=== PATIENT | female | born 1980 | race American Indian/Alaskan Native ===

== ENCOUNTER 2018-10-25 17:08 | Emergency (ER) | payer OTHER ==
[2018-10-25] MEDS ORDERED: Ondansetron 4 MG/2 ML SDV IVPUSH ONE (18:03)
[2018-10-25] MEDS ORDERED: HYDROmorphone 2 MG/ML SDV IVPUSH ONE ×2 (18:03→19:08)
[2018-10-25] MEDS ORDERED: Sodium Chloride 0.9% 1,000 ML IV SCH (18:15)
--- NOTE | 2018-10-25 18:17 | EDM.PDOC ---
ED HPI GENERAL MEDICAL PROBLEM - General Stated Complaint: ABD PAIN CRAMPS Time Seen by Provider: 10/25/18 17:40 Source of Information: Reports: Patient History Limitations: Reports: No Limitations - History of Present Illness INITIAL COMMENTS - FREE TEXT/NARRATIVE: Patient presents today with concern for acute onset abdominal pain that happened as she stood up from work this afternoon. Was not lifting or exerting anything, so does not think it was an injury. She has had pain like this once before a few months ago, and was diagnosed at that time with ovarian cysts rupture. Possible history of endometriosis. This was in another state. She opted at that time due to work scheduling and personal preference to treat with traditional [place] remedies and herbs, and her symptoms had not recurred until today. she thinks she has had two menstrual cycles since then. She took tylenol and ibuprofen this afternoon with very minimal relief. She notes the pain has spread somewhat to her low back and up her right side, and it is difficult to straighten her leg. Has a slight headache now and mild nausea, no vomiting, no diarrhea. No urinary symptoms, no abnormal vaginal discharge. Notes that her menstrual cycle started this morning, fairly heavy bleeding, has changed from 1 tampon to pads, changed them twice. Cycle about 7 days later than expected, but she is often not very regular. History 4 C/s and tubal ligation, as well as appendectomy. She thinks the cyst was around 2cm but it was not able to be seen on CT, required pelvic US to view. , not sexually active. Last meal was at 2pm, [employer]. Drinks a lot of water as its been quite hot, and tends to eat salty foods. No history diabetes, did have GDM and was on insulin during her . No history pre-eclampsia or HTN, no lung problems, no heart problems, had back pain at one point which greatly improved with PT. Family history of ovarian cancer. 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 Single mother of 4 , two of her boys are with her on this trip, ages 15 and 13. abdomen pain Pain Score (Numeric/FACES): 8 - Related Data Allergies Allergy/AdvReac Type Severity Reaction Status Date / Time ibuprofen Allergy Swelling Verified 10/25/18 18:03 prochlorperazine Allergy Other Verified 10/25/18 18:04 [From Compazine] promethazine [From Phenergan] Allergy Other Verified 10/25/18 18:04 Home Meds: Home Meds oxyCODONE 10 mg PO Q6HR #12 tablet 10/25/18 [Rx] Past Medical History [employer] SECURITY History: Reports: , Other (See Below) (ovarian cysts) : 4 Para: 4 LMP (Approximate): Other (See Below) (started today) - Past Surgical History GI Surgical History: Reports: Appendectomy Female Surgical History: Reports: Section (X4) Social & Family History - Family History Endocrine/Metabolic: Reports: Diabetes, type II Oncologic: Reports: Ovarian - Tobacco Use Smoking Status *Q: Never Smoker - Alcohol Use Alcohol Use History: No - Recreational Drug Use Recreational Drug Use: No - Living Situation & Occupation Living situation: Reports: Occupation: Employed Social History Comment: Sylvia from [place], [place], [employer], 4 sons two of whom are with her on this trip. ED ROS GENERAL - Review of Systems Review Of Systems: See Below Constitutional: Denies: Fever, Chills, Diaphoresis HEENT: Denies: Ear Pain, Eye Pain, Rhinitis, Sinus Problem, Throat Pain Respiratory: Denies: Shortness of Breath, Wheezing, Pleuritic Chest Pain, Cough Cardiovascular: Denies: Chest Pain, Dyspnea on Exertion, Edema, Palpitations, Syncope Endocrine: Reports: Other (notes she drinks a lot in the heat ). Denies: Polydypsia, Polyuria GI/Abdominal: Reports: Abdominal Pain, Nausea. Denies: Constipation, Diarrhea, Vomiting : Denies: Flank Pain, Frequency, Urgency Musculoskeletal: Reports: Back Pain Skin: Denies: Wound, Change in Color Neurological: Denies: Confusion, Dizziness, Headache, Numbness, Tingling, Weakness Hematologic/Lymphatic: Denies: Easy Bleeding, Easy Bruising Immunologic: Reports: No Symptoms ED EXAM, GENERAL - Physical Exam Exam: See Below Free Text/Narrative:: General: alert, pleasant and cooperative but in significant pain. Pupils equal and reactive, facial muscles symmetric, mucus membranes moist. No cervical lymphadenopathy. Lungs clear, no wheezes or crackles. Heart regular rate/ rhythm, peripheral pulses +2 in both upper and lower extremities. No lower extremity edema. No skin lesions or rashes. Gait normal, strength equal side to side. Abdomen: + bowel sounds, tender in RLQ, no rebound or guarding. Pelvic: copious blood in vaginal vault, unable to visual cervix. Bimanual: no cervical motion tenderness, no left adnexal tenderness, acutely tender over right adnexa. Course - Vital Signs Text/Narrative:: initial impression - history ovarian cysts and very similar presentation - very likely possibility. No appendix, ovarian torsion possible, less likely a bowel problem, no symptoms and no gallbladder area pain. Has otherwise felt well so not likely infectious. Will get labs, pelvic US, may need CT. IVF started and ordered 0.2 dilaudid, probably will need second dose, and zofran for nausea. Gets swelling when taking ibuprofen; will list as allergy since she has developed throat symptoms in the past so uses sparingly. Took tylenol this afternoon. Last Recorded V/S: Last Vital Signs Temp 36.5 C 10/25/18 20:45 Pulse 63 10/25/18 20:45 Resp 18 10/25/18 20:45 BP 112/83 10/25/18 20:45 Pulse Ox 100 10/25/18 20:45 - Orders/Labs/Meds Orders: Active Orders 24 hr Category Date Time Status Abdomen Pelvis w Cont [CT] Stat Exams 10/25/18 18:52 Taken Transvaginal Non OB [US] Stat Exams 10/25/18 18:18 Taken Labs: Laboratory Tests 10/25/18 10/25/18 Range/Units 18:21 18:21 WBC 8.0 (4.5-12.0) X10-3/uL RBC 4.33 (3.23-5.20) x10(6)uL Hgb 13.4 (11.5-15.5) g/dL Hct 38.7 (30.0-51.3) % MCV 89.5 (80-96) fL MCH 30.9 (27.7-33.6) pg MCHC 34.6 (32.2-35.4) g/dL RDW 12.9 (11.5-15.5) % Plt Count 253 (125-369) X10(3)uL MPV 8.2 (7.4-10.4) fL Neut % (Auto) 71.8 (46-82) % Lymph % (Auto) 23.1 (13-37) % [place] % (Auto) 5.0 (4-12) % Eos % (Auto) 0 L (1.0-5.0) % Baso % (Auto) 0 (0-2) % Neut # (Auto) 5.7 (1.6-8.3) # Lymph # (Auto) 1.9 (0.6-5.0) # [place] # (Auto) 0.4 (0.0-1.3) # Eos # (Auto) 0.0 (0.0-0.8) # Baso # (Auto) 0.0 (0.0-0.2) # Sodium 141 (135-145) mmol/L Potassium 3.4 L (3.5-5.3) mmol/L Chloride 107 (100-110) mmol/L Carbon Dioxide 25 (21-32) mmol/L BUN 10 (7-18) mg/dL Creatinine 0.9 (0.55-1.02) mg/dL Est Cr Clr Drug Dosing TNP Estimated GFR (MDRD) > 60 (>60) BUN/Creatinine Ratio 11.1 (9-20) Glucose 115 (80-116) mg/dL Calcium 8.3 L (8.6-10.2) mg/dL Total Bilirubin 0.4 (0.1-1.3) mg/dL AST 14 (5-25) IU/L ALT 16 (12-36) U/L Alkaline Phosphatase 93 (56-112) IU/L Total Protein 6.4 (6.0-8.0) g/dL Albumin 3.6 (3.5-5.2) g/dL Globulin 2.8 g/dL Albumin/Globulin Ratio 1.3 Meds: Medications Discontinued Medications Generic Name Dose Route Start Last Admin Trade Name Freq PRN Reason Stop Dose Admin Acetaminophen 650 mg 10/25/18 19:30 10/25/18 19:35 Tylenol PO 10/25/18 19:31 650 mg NOW ONE Administration Hydromorphone HCl 0.2 mg 10/25/18 18:03 10/25/18 18:24 Dilaudid IVPUSH 10/25/18 18:04 0.2 mg ONETIME ONE Administration Hydromorphone HCl 0.2 mg 10/25/18 19:08 10/25/18 19:20 Dilaudid IVPUSH 10/25/18 19:09 0.2 mg ONETIME ONE Administration Sodium Chloride 1,000 mls @ 150 mls/hr 10/25/18 18:15 10/25/18 18:15 Normal Saline IV 150 mls/hr ASDIRECTED EMILIANO Administration Iopamidol 100 ml 10/25/18 18:54 Isovue-370 (76%) IV 10/25/18 18:55 ONETIME ONE Ondansetron HCl 4 mg 10/25/18 18:03 10/25/18 18:20 Zofran IVPUSH 10/25/18 18:04 4 mg ONETIME ONE Administration Oxycodone HCl 10 mg 10/25/18 20:15 10/25/18 20:30 Oxycodone PO 10/25/18 20:16 10 mg ONETIME ONE Administration Sodium Chloride 10 ml 10/25/18 19:24 10/25/18 19:25 Saline Flush FLUSH 10 ml ASDIRECTED PRN Administration IV Use - Re-Assessments/Exams Free Text/Narrative Re-Assessment/Exam: 10/25/18 unable to see ovarians on US and patient not tolerating exam, opted for CT instead. Re-evaluated and pelvic exam completed after second dose of 0.2mg dilaudid, patient painful on right, didn't really tolerate speculum exam. Labs within normal limits, unlikely to be infectious. Abdomen no rigidity, rebound or guarding. 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 reviewed CT report with patient, no obvious findings, though this is not uncommon with a ruptured cyst. Cannot completely rule out ovarian torsion without an ultrasound, but no obvious signs seen on CT. given 10mg PO oxycodone prior to discharge, Rx printer not working so I will call her script into pharmacy in the morning. Discussed precautions and reasons to return. 10/26/18 08:33 Free Text/Narrative Re-Assessment/Exam: reviewed CT report with patient, no obvious findings, though this is not uncommon with a ruptured cyst. Cannot completely rule out ovarian torsion without an ultrasound, but no obvious signs seen on CT. Discussed discharge and risks/benefits of not completing US. Note provided for work. Recommended if still significant pain could followup Sunday at walk-in clinic, information also given for local PCP offices as she may be in the area for a while. Also discussed s/s which would prompt need for re-evaluation in ER over weekend. abdomen still painful but no rebound or guarding. son able to drive them home. Given 10mg PO oxycodone prior to discharge, Rx printer not working so I will call her oxycodone script into pharmacy in the morning, advised need to be conservative with this, as depending on clinician she might not get any more. Discussed precautions and reasons to return. She was in agreement with this plan and had no further questions. Departure - Departure Time of Disposition: 20:17 Disposition: Home, Self-Care 01 Condition: Fair Clinical Impression: Abdominal pain, Ovarian cyst rupture - Discharge Information *PRESCRIPTION DRUG MONITORING PROGRAM REVIEWED*: Yes *COPY OF PRESCRIPTION DRUG MONITORING REPORT IN PATIENT [place]: No (multi state report run, only 2 scripts in last year, consistent with patient story) Prescriptions: oxyCODONE 10 mg PO Q6HR #12 tablet Instructions: Ovarian Cyst, [id number] Referrals: PCP,Not In Area [Primary Care Provider] - Forms: ED Department Discharge Additional Instructions: [facility] [phone] [facility] [phone] can followup at walk-in clinic on Sunday if still having lots of pain, they will be able to order another US there if needed. most likely the diagnosis is as before, a ruptured ovarian cyst. An alternative possibility is that there is a problem with blood flow to the ovary , as we discussed, if this is the case the pain will continue to significantly worsen and you will need to return to ER. There were no signs of this problem seen on CT but the best test for this is a pelvic US. Return to ER if: fever vomiting and unable to stay hydrated severely worsening pain -- it should be improving slowly over the next few days pain that is continuing to spread throughout your abdomen, + feeling lightheaded , heart racing, unable to sit up note provided for work small script of oxycodone given - due to new guidelines regarding opioids, this will likely not be refilled again so use sparingly and mainly to help sleep if you can, and to be able to take care of your boys. A dose was given tonight before you left the ER and you can pick pulling machine tender the rest at the pharmacy in the morning. If you develop swelling after taking ibuprofen, you should not take this medication, the allergy will worsen over time tylenol -very important to not exceed the daily instructions on the bottle - it will cause liver failure and need for a liver transplant! take very good care - My Orders Last 24 Hours: My Active Orders 10/25/18 18:18 Transvaginal Non OB [US] Stat 10/25/18 18:52 Abdomen Pelvis w Cont [CT] Stat - Assessment/Plan Last 24 Hours: My Active Orders 10/25/18 18:18 Transvaginal Non OB [US] Stat 10/25/18 18:52 Abdomen Pelvis w Cont [CT] Stat
[2018-10-25] MEDS ORDERED: Iopamidol 755 Mg/ML 100 ML Bottle IV ONE (18:54)
[2018-10-25] MEDS ORDERED: Sodium Chloride 0.9% 10 ML Syringe FLUSH PRN (19:24)
[2018-10-25] MEDS ORDERED: Acetaminophen 325 MG Tab PO ONE (19:30)
[2018-10-25] MEDS ORDERED: oxyCODONE 5 MG Tab PO ONE (20:15)
--- NOTE | 2018-10-28 13:47 | US ---
INDICATION: Pelvic pain, sudden onset, history of left ovarian cyst. INDICATION FOR TRANSVAGINAL: Pelvic pain, sudden onset, history of left ovarian cyst/need better visualization of the uterus than was possible with transabdominal probe. PELVIC ULTRASOUND, NON-OB, LIMITED/TRANSVAGINAL PELVIC ULTRASOUND, NON-OB: Multiple ultrasonic images were obtained initially with transabdominal probe and then with transvaginal probe to better visualize the uterus and ovaries, 12/06 - no comparisons. Nabothian cysts are noted at the cervix. The largest measured approximately 6.3 mm. Poor visualization of the uterus is noted. No gross abnormality was seen. Study is limited, however. The ovaries were not visualized. IMPRESSION: Very limited study of the pelvis by ultrasound. Apparently a CT examination of the abdomen and pelvis will be obtained. [facility]
== END 2018-10-25 20:50 | disposition home or self-care (01) ==
LOC: FB.ED 17:08
DX: N83.8 Other noninflammatory disorders of ovary, fallopian tube and broad ligament (principal); Z88.6 Allergy status to analgesic agent; Z88.8 Allergy status to other drugs, medicaments and biological substances
CPT/HCPCS: 36415; 74177; 76830; 76857; 80053; 85025; 96361; 96374; 96375; 96376; 99284; A9270; J1170; J2405; J7030

== ENCOUNTER 2018-10-27 22:48 | Emergency (ER) | payer OTHER ==
--- NOTE | 2018-10-27 23:00 | EDM.PDOC ---
ED HPI GENERAL MEDICAL PROBLEM - General Stated Complaint: ABD PAIN Time Seen by Provider: 10/27/18 22:48 Source of Information: Reports: Patient History Limitations: Reports: Physical Impairment - History of Present Illness INITIAL COMMENTS - FREE TEXT/NARRATIVE: 37 y.o. N A female came to ed because of pain at her RLQ of her abdomen. Pt was in this ED for same yesterday,when a CT abd/pelvis with contrast was taken and found to be neg. Pelvic US was performed as well but could not be completed because of her pain. Pt was sent home with oxycodone. Pt came back because of excruciating pain at her RLQ of her abd. 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 Pt has similar symptoms about 1 year ago. At that time she went to a Interior Design Professor, who gave a some "Erbs" and the pain subsided. No N/V/D No CP no SOB. Pt is from [place] and is scheduled to work in [place] for the next 10 weeks. No other acute med issues. BP 122/69 RR 20 Pulse ox 99% on RA Pulse 71 Temp 36.4 Onset Date: 10/25/18 Onset Time: 14:00 Duration: Day(s):, Intermittent Location: Reports: Pelvis Quality: Reports: Dull, Pressure, Stabbing, Throbbing Severity: Severe Improves with: Reports: Heat Therapy Worsens with: Reports: Movement Context: Reports: Activity (while lifting up a pipe at work. 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: , Other (See Below) (ovarian cysts) - Past Surgical History GI Surgical History: Reports: Appendectomy Female Surgical History: Reports: Section (X4) Social & Family History - Family History Endocrine/Metabolic: Reports: Diabetes, type II Oncologic: Reports: Ovarian - Caffeine Use Caffeine Use: Reports: Coffee - Living Situation & Occupation Living situation: Reports: Occupation: Employed ED ROS GENERAL - Review of Systems Review Of Systems: See Below Constitutional: Reports: No Symptoms HEENT: Reports: No Symptoms Respiratory: Reports: No Symptoms Cardiovascular: Reports: No Symptoms Endocrine: Reports: No Symptoms GI/Abdominal: Reports: Abdominal Pain (RLL abdomen) : Reports: No Symptoms Musculoskeletal: Reports: No Symptoms Skin: Reports: No Symptoms Neurological: Reports: No Symptoms Psychiatric: Reports: No Symptoms Hematologic/Lymphatic: Reports: No Symptoms Immunologic: Reports: No Symptoms ED EXAM, RENAL/ - Physical Exam Exam: See Below Exam Limited By: Other (abd. pin) General Appearance: Alert, Moderate Distress, Obese (morbid) Eye Exam: Bilateral Eye: Normal Inspection Ears: Normal External Exam Nose: Normal Inspection, Normal Mucosa, No Blood Throat/Mouth: Normal Inspection, Normal Lips, Normal Voice, No Airway Compromise Head: Atraumatic, Normocephalic Neck: Normal Inspection, Supple, Non-Tender, Full Range of Motion Respiratory/Chest: No Respiratory Distress, Lungs Clear, Normal Breath Sounds, No Accessory Muscle Use, Chest Non-Tender Cardiovascular: Normal Peripheral Pulses, Regular Rate, Rhythm, No Edema, No Gallop GI/Abdominal: Normal Bowel Sounds, No Mass, Tender (RLQ of abdomen) (Female) Exam: Deferred Rectal (Female) Exam: Deferred Back Exam: Normal Inspection, Full Range of Motion Extremities: Normal Inspection, Normal Range of Motion, Non-Tender, No Pedal Edema Neurological: Alert, Oriented, CN II-XII Intact, Normal Cognition, Abnormal Gait (because of abd.pain) Psychiatric: Normal Affect, Normal Mood Skin Exam: Warm, Dry, Intact, Normal Color, No Rash Lymphatic: No Adenopathy Course - Vital Signs Text/Narrative:: 37 y.o. N A female came to ed because of pain at her RLQ of her abdomen. Pt was in this ED for same yesterday,when a CT abd/pelvis with contrast was taken and found to be neg. Pelvic US was performed as well but could not be completed because of her pain. Pt was sent home with oxycodone. Pt came back because of excruciating pain at her RLQ of her abd. 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 Pt has similar symptoms about 1 year ago. At that time she went to a Interior Design Professor, who gave a some "Erbs" and the pain subsided. No N/V/D No CP no SOB. Pt is from [place] and is scheduled to work in [place] for the next 10 weeks. No other acute med issues. BP 122/69 RR 20 Pulse ox 99% on RA Pulse 71 Temp 36.4 PE: Morbid obese 37 y.o.f with RLQ abd pain Imaging: CT and/pelvis with out contrast: NAD 12.33 am Consultation CRL: QUENTIN Hamm was called who confirmed again: No hernia, no Hematome no Urolithiasis, no torsion of ovaries no acute findings etc. Labs: CBC, BMP and UA were nl except Her Lymphs were 44.1 % her potassium was 3.4 her Ca was 8.3 and her UA showed Microcytic hematuria Impression: Right groin pain since Sunday, cause not determined Tx: Dilaudid 2 mg, ICE/Warm heat Reexam: Pain did not improve, Pt was offered to be admitted for pain control, which she refused because she hill a 13 year old boy at home, who would be by himself Plan: D/C with instructions. Pt had still 6 tabs of oxycodone from Sunday, previous admission Last Recorded V/S: Last Vital Signs Temp 36.4 C 10/28/18 00:59 Pulse 60 10/28/18 00:59 Resp 18 10/28/18 00:59 BP 105/62 10/28/18 00:59 Pulse Ox 100 10/28/18 00:59 - Orders/Labs/Meds Orders: Active Orders 24 hr Category Date Time Status Notify Provider Consults [RC] ASDIRECTED Care 10/28/18 01:18 Active Consult to Physician [CONS] Urgent Cons 10/28/18 01:14 Ordered Abdomen Pelvis wo Cont [CT] Stat Exams 10/27/18 22:58 Taken Labs: Laboratory Tests 10/27/18 10/27/18 10/27/18 Range/Units 23:11 23:11 23:58 WBC 4.5 (4.5-12.0) X10-3/uL RBC 4.16 (3.23-5.20) x10(6)uL Hgb 12.7 (11.5-15.5) g/dL Hct 37.8 (30.0-51.3) % MCV 90.9 (80-96) fL MCH 30.5 (27.7-33.6) pg MCHC 33.6 (32.2-35.4) g/dL RDW 13.0 (11.5-15.5) % Plt Count 248 (125-369) X10(3)uL MPV 10.2 (7.4-10.4) fL Neut % (Auto) 47.0 (46-82) % Lymph % (Auto) 44.1 H (13-37) % [place] % (Auto) 8.9 (4-12) % Eos % (Auto) 0 L (1.0-5.0) % Baso % (Auto) 0 (0-2) % Neut # (Auto) 2.1 (1.6-8.3) # Lymph # (Auto) 2.0 (0.6-5.0) # [place] # (Auto) 0.4 (0.0-1.3) # Eos # (Auto) 0.0 (0.0-0.8) # Baso # (Auto) 0.0 (0.0-0.2) # Sodium 139 (135-145) mmol/L Potassium 3.4 L (3.5-5.3) mmol/L Chloride 104 (100-110) mmol/L Carbon Dioxide 27 (21-32) mmol/L BUN 14 (7-18) mg/dL Creatinine 0.9 (0.55-1.02) mg/dL Est Cr Clr Drug Dosing 77.76 mL/min Estimated GFR (MDRD) > 60 (>60) BUN/Creatinine Ratio 15.6 (9-20) Glucose 98 (80-116) mg/dL Calcium 8.4 L (8.6-10.2) mg/dL Urine Color Yellow (YELLOW) Urine Appearance Clear (CLEAR) Urine pH 6.5 (5.0-6.5) Ur Specific [place] 1.015 (1.010-1.025) Urine Protein Negative (NEGATIVE) mg/dL Urine Glucose (UA) Normal (NORMAL) mg/dL Urine Ketones Negative (NEGATIVE) mg/dL Urine Occult Blood Moderate H (NEGATIVE) Urine Nitrite Negative (NEGATIVE) Urine Bilirubin Negative (NEGATIVE) Urine Urobilinogen Normal (NEGATIVE) mg/dL Ur Leukocyte Esterase Negative (NEGATIVE) Urine RBC 5-10 H (0-5) Urine WBC 0-5 (0-5) Ur Squamous Epith Cells Few H (NS,R,O) Urine Bacteria Few H (NS) Meds: Medications Discontinued Medications Generic Name Dose Route Start Last Admin Trade Name Sumit PRN Reason Stop Dose Admin Hydromorphone HCl 1 mg 10/27/18 23:17 10/27/18 23:29 Dilaudid IM 10/27/18 23:18 1 mg ONETIME STA Administration Hydromorphone HCl 1 mg 10/28/18 00:29 10/28/18 00:33 Dilaudid IM 10/28/18 00:30 1 mg ONETIME ONE Administration Departure - Departure Time of Disposition: 00:59 Disposition: Home, Self-Care 01 Condition: Fair Clinical Impression: Lt groin pain - Discharge Information Instructions: Abdominal Pain, Adult Referrals: PCP,None [Primary Care Provider] - Forms: ED Department Discharge Additional Instructions: Please apply ice to the affected area, please cont your pin meds given on Sunday , [facility].Please come back if your symptoms get worse acutely - My Orders Last 24 Hours: My Active Orders 10/27/18 22:58 Abdomen Pelvis wo Cont [CT] Stat 10/28/18 01:14 Consult to Physician [CONS] Urgent 10/28/18 01:18 Notify Provider Consults [RC] ASDIRECTED - Assessment/Plan Last 24 Hours: My Active Orders 10/27/18 22:58 Abdomen Pelvis wo Cont [CT] Stat 10/28/18 01:14 Consult to Physician [CONS] Urgent 10/28/18 01:18 Notify Provider Consults [RC] ASDIRECTED
[2018-10-27] MEDS ORDERED: HYDROmorphone 2 MG/ML SDV IM STA (23:17)
[2018-10-28] MEDS ORDERED: HYDROmorphone 2 MG/ML SDV IM ONE (00:29)
== END 2018-10-28 01:13 | disposition home or self-care (01) ==
LOC: FB.ED 22:48
DX: R10.31 Right lower quadrant pain (principal); E66.01 Morbid (severe) obesity due to excess calories; Z88.8 Allergy status to other drugs, medicaments and biological substances; Z90.49 Acquired absence of other specified parts of digestive tract
CPT/HCPCS: 36415; 74176; 80048; 81001; 85025; 96372; 99284; J1170

== ENCOUNTER 2018-11-02 21:43 | Emergency (ER) | payer OTHER ==
--- NOTE | 2018-11-02 22:44 | EDM.PDOC ---
ED HPI GENERAL MEDICAL PROBLEM - General Chief Complaint: Abdominal Pain Stated Complaint: ABDOMIN PAIN Time Seen by Provider: 11/02/18 22:40 Source of Information: Reports: Patient History Limitations: Reports: No Limitations - History of Present Illness INITIAL COMMENTS - FREE TEXT/NARRATIVE: Presents with persistent RLQ abdominal pain since 10/25/18, radiates to right upper leg and right mid back. Pain initially occurred at work after bending over and then standing back up. Pain is constant and not controlled with Tramadol, and worsens with urination. Right leg became swollen 2 days ago, but resolved with elevation. This is the 3rd ER visit for this complaint. A pelvic exam was performed on the initial visit 10/25/18 but did not illicit concern for PID. Pain was thought to be most likely secondary to a ruptured ovarian cyst. A CT Abd/Pelvis w/o contrast on 10/27/18 was unremarkable. Onset Date: 10/25/18 Location: Reports: Abdomen Quality: Reports: Ache Severity: Moderate RLQ & groin Pain Score (Numeric/FACES): 6 - Related Data Allergies Allergy/AdvReac Type Severity Reaction Status Date / Time ibuprofen Allergy Swelling Verified 11/02/18 22:12 prochlorperazine Allergy Other Verified 11/02/18 22:12 [From Compazine] promethazine [From Phenergan] Allergy Other Verified 11/02/18 22:12 Home Meds: Home Meds Acetaminophen/oxyCODONE [Percocet 325-5 MG] 1 - 2 each PO Q6H PRN #12 tab [Rx] Past Medical History Gastrointestinal History: Reports: None Genitourinary History: Reports: None 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: , 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: Neurological History: Reports: Seizure Other Neuro History: 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 Endocrine/Metabolic History: Reports: Obesity/BMI 30+ - Infectious Disease History Infectious Disease History: Reports: Chicken Pox - Past Surgical History GI Surgical History: Reports: Appendectomy Female Surgical History: Reports: Section Other Female Surgeries/Procedures: CS x 4 Neurological Surgical History: Reports: Other (See Below) Other Neurological Surgeries/Procedures: pituitary tumor removed ( transsphenoidal) Social & Family History - Family History Family Medical History: Noncontributory Endocrine/Metabolic: Reports: Diabetes, type II Oncologic: Reports: Ovarian - Tobacco Use Smoking Status *Q: Former Smoker Years of Tobacco use: 2 Used Tobacco, but Quit: Yes Month/Year Tobacco Last Used: 2018 - Caffeine Use Caffeine Use: Reports: Coffee, Energy Drinks, Soda, Tea - Recreational Drug Use Recreational Drug Use: No - Living Situation & Occupation Living situation: Reports: Occupation: Employed ED ROS GENERAL - Review of Systems Review Of Systems: ROS reveals no pertinent complaints other than HPI. ED EXAM, GI/ABD - Physical Exam Exam: See Below Exam Limited By: No Limitations General Appearance: Alert, WD/WN, No Apparent Distress Ears: Normal External Exam Nose: Normal Inspection Throat/Mouth: Normal Inspection Head: Atraumatic, Normocephalic Neck: Full Range of Motion Respiratory/Chest: No Respiratory Distress, Lungs Clear, Normal Breath Sounds Cardiovascular: Regular Rate, Rhythm, No Murmur GI/Abdominal Exam: Normal Bowel Sounds, Soft, Tender (moderate RLQ) (Female) Exam: Deferred Back Exam: CVA Tenderness (R) (mild) Extremities: Normal Range of Motion, No Pedal Edema, Other (mild tenderness right posterior thigh, 2+ right dorsalis pedis pulse). No: Slow Capillary Refill, Redness Neurological: Alert, Normal Cognition, No Motor/Sensory Deficits Psychiatric: Normal Affect, Normal Mood Skin Exam: Warm, Dry, Intact, Normal Color, No Rash Course - Vital Signs Last Recorded V/S: Last Vital Signs Temp 36.8 C 11/02/18 22:05 Pulse 56 L 11/02/18 22:05 Resp 20 11/02/18 22:05 BP 118/71 11/02/18 22:05 Pulse Ox 99 11/02/18 22:05 - Orders/Labs/Meds Orders: Active Orders 24 hr Category Date Time Status Abdomen Pelvis w Cont [CT] Stat Exams 11/02/18 23:12 Taken CHLAMYDIA/GC AMPLIFICATION Stat Lab 11/02/18 21:45 Received Sodium Chloride 0.9% [Saline Flush] Med 11/02/18 22:49 Active 10 ml FLUSH ASDIRECTED PRN Saline Lock Insert [OM.PC] Routine Oth 11/02/18 22:49 Ordered Medication Orders Sodium Chloride (Saline Flush) 10 ml FLUSH ASDIRECTED PRN PRN Reason: Keep Vein Open Labs: Laboratory Tests 11/02/18 11/02/18 11/02/18 Range/Units 21:45 21:45 21:45 WBC (4.5-12.0) X10-3/uL RBC (3.23-5.20) x10(6)uL Hgb (11.5-15.5) g/dL Hct (30.0-51.3) % MCV (80-96) fL MCH (27.7-33.6) pg MCHC (32.2-35.4) g/dL RDW (11.5-15.5) % Plt Count (125-369) X10(3)uL MPV (7.4-10.4) fL Neut % (Auto) (46-82) % Lymph % (Auto) (13-37) % [place] % (Auto) (4-12) % Eos % (Auto) (1.0-5.0) % Baso % (Auto) (0-2) % Neut # (Auto) (1.6-8.3) # Lymph # (Auto) (0.6-5.0) # [place] # (Auto) (0.0-1.3) # Eos # (Auto) (0.0-0.8) # Baso # (Auto) (0.0-0.2) # D-Dimer, Quantitative (0.0-0.59) mg/LFEU Sodium (135-145) mmol/L Potassium (3.5-5.3) mmol/L Chloride (100-110) mmol/L Carbon Dioxide (21-32) mmol/L BUN (7-18) mg/dL Creatinine (0.55-1.02) mg/dL Est Cr Clr Drug Dosing mL/min Estimated GFR (MDRD) (>60) BUN/Creatinine Ratio (9-20) Glucose (80-116) mg/dL Calcium (8.6-10.2) mg/dL Total Bilirubin (0.1-1.3) mg/dL AST (5-25) IU/L ALT (12-36) U/L Alkaline Phosphatase (56-112) IU/L Total Protein (6.0-8.0) g/dL Albumin (3.5-5.2) g/dL Globulin g/dL Albumin/Globulin Ratio Amylase (25-115) U/L Urine Color Yellow (YELLOW) Urine Appearance Slightly cloudy (CLEAR) Urine pH 7.0 H (5.0-6.5) Ur Specific [place] 1.010 (1.010-1.025) Urine Protein Negative (NEGATIVE) mg/dL Urine Glucose (UA) Normal (NORMAL) mg/dL Urine Ketones Negative (NEGATIVE) mg/dL Urine Occult Blood Moderate H (NEGATIVE) Urine Nitrite Negative (NEGATIVE) Urine Bilirubin Negative (NEGATIVE) Urine Urobilinogen 1 H (NEGATIVE) mg/dL Ur Leukocyte Esterase Negative (NEGATIVE) Urine RBC 0-5 (0-5) Urine WBC 0-5 (0-5) Ur Squamous Epith Cells Moderate H (NS,R,O) Urine Bacteria Few H (NS) Urine HCG, Qual Negative (NEGATIVE) Urine Opiates Screen Negative (NEGATIVE) Ur Oxycodone Screen Negative (NEGATIVE) Ur Propoxyphene Screen Negative (NEGATIVE) Ur Barbituates Screen Negative (NEGATIVE) Ur Tricyclics Screen Negative (NEGATIVE) Ur Phencyclidine Scrn Negative (NEGATIVE) Ur Amphetamine Screen Negative (NEGATIVE) Urine MDMA Screen Negative (NEGATIVE) U Benzodiazepines Scrn Negative (NEGATIVE) U Cocaine Metab Screen Negative (NEGATIVE) U Marijuana (THC) Screen Positive H (NEGATIVE) 11/02/18 11/02/18 11/02/18 Range/Units 22:35 22:35 22:35 WBC 4.8 (4.5-12.0) X10-3/uL RBC 4.11 (3.23-5.20) x10(6)uL Hgb 13.1 (11.5-15.5) g/dL Hct 37.1 (30.0-51.3) % MCV 90.1 (80-96) fL MCH 31.8 (27.7-33.6) pg MCHC 35.3 (32.2-35.4) g/dL RDW 13.3 (11.5-15.5) % Plt Count 235 (125-369) X10(3)uL MPV 7.9 (7.4-10.4) fL Neut % (Auto) 52.7 (46-82) % Lymph % (Auto) 41.5 H (13-37) % [place] % (Auto) 5.6 (4-12) % Eos % (Auto) 0 L (1.0-5.0) % Baso % (Auto) 0 (0-2) % Neut # (Auto) 2.5 (1.6-8.3) # Lymph # (Auto) 2.0 (0.6-5.0) # [place] # (Auto) 0.3 (0.0-1.3) # Eos # (Auto) 0.0 (0.0-0.8) # Baso # (Auto) 0.0 (0.0-0.2) # D-Dimer, Quantitative < 0.19 (0.0-0.59) mg/LFEU Sodium 141 (135-145) mmol/L Potassium 3.8 (3.5-5.3) mmol/L Chloride 107 (100-110) mmol/L Carbon Dioxide 24 (21-32) mmol/L BUN 20 H (7-18) mg/dL Creatinine 1.0 (0.55-1.02) mg/dL Est Cr Clr Drug Dosing 69.98 mL/min Estimated GFR (MDRD) > 60 (>60) BUN/Creatinine Ratio 20.0 (9-20) Glucose 138 H (80-116) mg/dL Calcium 8.3 L (8.6-10.2) mg/dL Total Bilirubin 0.4 (0.1-1.3) mg/dL AST 16 D (5-25) IU/L ALT 17 (12-36) U/L Alkaline Phosphatase 90 (56-112) IU/L Total Protein 6.3 (6.0-8.0) g/dL Albumin 3.6 (3.5-5.2) g/dL Globulin 2.7 g/dL Albumin/Globulin Ratio 1.3 Amylase 41 (25-115) U/L Urine Color (YELLOW) Urine Appearance (CLEAR) Urine pH (5.0-6.5) Ur Specific [place] (1.010-1.025) Urine Protein (NEGATIVE) mg/dL Urine Glucose (UA) (NORMAL) mg/dL Urine Ketones (NEGATIVE) mg/dL Urine Occult Blood (NEGATIVE) Urine Nitrite (NEGATIVE) Urine Bilirubin (NEGATIVE) Urine Urobilinogen (NEGATIVE) mg/dL Ur Leukocyte Esterase (NEGATIVE) Urine RBC (0-5) Urine WBC (0-5) Ur Squamous Epith Cells (NS,R,O) Urine Bacteria (NS) Urine HCG, Qual (NEGATIVE) Urine Opiates Screen (NEGATIVE) Ur Oxycodone Screen (NEGATIVE) Ur Propoxyphene Screen (NEGATIVE) Ur Barbituates Screen (NEGATIVE) Ur Tricyclics Screen (NEGATIVE) Ur Phencyclidine Scrn (NEGATIVE) Ur Amphetamine Screen (NEGATIVE) Urine MDMA Screen (NEGATIVE) U Benzodiazepines Scrn (NEGATIVE) U Cocaine Metab Screen (NEGATIVE) U Marijuana (THC) Screen (NEGATIVE) Meds: Medications Generic Name Dose Route Start Last Admin Trade Name Freq PRN Reason Stop Dose Admin Sodium Chloride 10 ml 11/02/18 22:49 Saline Flush FLUSH ASDIRECTED PRN Keep Vein Open Discontinued Medications Generic Name Dose Route Start Last Admin Trade Name Freq PRN Reason Stop Dose Admin Hydromorphone HCl 1 mg 11/02/18 22:50 11/02/18 23:04 Dilaudid IVPUSH 11/02/18 22:51 1 mg ONETIME ONE Administration Hydromorphone HCl 1 mg 11/02/18 23:34 11/02/18 23:39 Dilaudid IVPUSH 11/02/18 23:35 1 mg ONETIME ONE Administration Hydromorphone HCl 1 mg 11/03/18 00:22 Dilaudid IVPUSH 11/03/18 00:23 ONETIME ONE Sodium Chloride 1,000 mls @ 999 mls/hr 11/02/18 22:49 11/02/18 23:02 Normal Saline IV 11/02/18 23:49 999 mls/hr .BOLUS ONE Administration Iopamidol 100 ml 11/02/18 23:45 11/03/18 00:01 Isovue-370 (76%) IV 11/02/18 23:46 100 ml . DIRECTED ONE Administration Ondansetron HCl 4 mg 11/02/18 22:50 11/02/18 23:02 Zofran IVPUSH 11/02/18 22:51 4 mg ONETIME ONE Administration - Radiology Interpretation Free Text/Narrative:: CT Abd/Pelvis w/ IV contrast: No obstruction, perforation or inflammation, no acute abnormalities. left renal lesion, possibly representing a complex cyst. - Re-Assessments/Exams Free Text/Narrative Re-Assessment/Exam: 11/03/18 01:01 Pain has improved after Dilaudid. Departure - Departure Time of Disposition: 01:02 Disposition: Home, Self-Care 01 Condition: Good Clinical Impression: Abdominal pain of unknown etiology - Discharge Information *PRESCRIPTION DRUG MONITORING PROGRAM REVIEWED*: Yes *COPY OF PRESCRIPTION DRUG MONITORING REPORT IN PATIENT BAUTISTA: No Prescriptions: Acetaminophen/oxyCODONE [Percocet 325-5 MG] 1 - 2 each PO Q6H PRN #12 tab PRN Reason: Pain Instructions: Abdominal Pain, Adult, [id number] Referrals: Mayur Velasquez MD [Physician] - 1 Day Forms: ED Department Discharge, ED Return to Work/School Form Additional Instructions: Fill the prescription for Percocet and take instead of the Tramadol. Follow up with general surgery in 2 days. Return to the ER if symptoms worsen. - My Orders Last 24 Hours: My Active Orders 11/02/18 21:45 CHLAMYDIA/GC AMPLIFICATION Stat 11/02/18 22:49 Sodium Chloride 0.9% [Saline Flush] 10 ml FLUSH ASDIRECTED PRN Saline Lock Insert [OM.PC] Routine 11/02/18 23:12 Abdomen Pelvis w Cont [CT] Stat - Assessment/Plan Last 24 Hours: My Active Orders 11/02/18 21:45 CHLAMYDIA/GC AMPLIFICATION Stat 11/02/18 22:49 Sodium Chloride 0.9% [Saline Flush] 10 ml FLUSH ASDIRECTED PRN Saline Lock Insert [OM.PC] Routine 11/02/18 23:12 Abdomen Pelvis w Cont [CT] Stat
[2018-11-02] MEDS ORDERED: Sodium Chloride 0.9% 1,000 ML IV ONE (22:49)
[2018-11-02] MEDS ORDERED: Sodium Chloride 0.9% 10 ML Syringe FLUSH PRN (22:49)
[2018-11-02] MEDS ORDERED: Ondansetron 4 MG/2 ML SDV IVPUSH ONE (22:50)
[2018-11-02] MEDS ORDERED: HYDROmorphone 2 MG/ML SDV IVPUSH ONE ×2 (22:50→23:34)
[2018-11-02] MEDS ORDERED: Iopamidol 755 Mg/ML 100 ML Bottle IV ONE (23:45)
[2018-11-03] MEDS ORDERED: HYDROmorphone 2 MG/ML SDV IVPUSH ONE (00:22)
[2018-11-06 03:09] LABS: CHLAMYDIA TRACHOMATIS, NAA Negative (Negative); NEISSERIA GONORRHOEAE, NAA Negative (Negative)
== END 2018-11-03 01:14 | disposition home or self-care (01) ==
LOC: FB.ED 21:43
DX: R10.31 Right lower quadrant pain (principal); E66.9 Obesity, unspecified; Z90.49 Acquired absence of other specified parts of digestive tract; Z88.6 Allergy status to analgesic agent; Z88.8 Allergy status to other drugs, medicaments and biological substances; Z87.891 Personal history of nicotine dependence
CPT/HCPCS: 36415; 74177; 80053; 80305; 81001; 81025; 82150; 85025; 85379; 87491; 87591; 96361; 96374; 96375; 96376; 99284; J1170; J2405; J7030; Q9967

== ENCOUNTER 2018-11-06 22:38 | Emergency (ER) | payer OTHER ==
[2018-11-06] MEDS ORDERED: Acetaminophen/oxyCODONE 325-5 MG Tab PO ONE (22:39)
--- NOTE | 2018-11-06 23:11 | EDM.PDOC ---
ED HPI GENERAL MEDICAL PROBLEM - General Chief Complaint: Abdominal Pain Stated Complaint: BACK PAIN ALL AROUND FROM BACK TO FRONT Time Seen by Provider: 11/06/18 23:07 Source of Information: Reports: Patient History Limitations: Reports: No Limitations - History of Present Illness INITIAL COMMENTS - FREE TEXT/NARRATIVE: Returns to the ER for the 4th time in 12 days for same complaint. Presents with persistent RLQ abdominal pain since 10/25/18, radiates to right upper leg and across entire lower back area. Pain initially occurred at work after bending over and then standing back up. Pain is constant and no worse than when she was last treated in the ER on 11/02/18, work up including labwork and CT Abd/Pelvis was unremarkable. She was discharged with a prescription for Percocet, she currently has two tablets left. A referral was made to Dr. Velasquez, patient did not keep the appointment because she was required to work. She has since quit her job. Patient states at one point in her illness her right arm became numb. Denies headache, chest pain, shortness of breath, N/V/D, F/C or other complaints. Onset Date: 10/25/18 Duration: Week(s): (2) Location: Reports: Abdomen, Back, Lower Extremity, Right Quality: Reports: Ache Severity: Moderate - Related Data Allergies Allergy/AdvReac Type Severity Reaction Status Date / Time ibuprofen Allergy Swelling Verified 11/06/18 22:59 prochlorperazine Allergy Other Verified 11/06/18 22:59 [From Compazine] promethazine [From Phenergan] Allergy Other Verified 11/06/18 23:00 Home Meds: Home Meds Acetaminophen/oxyCODONE [Percocet 325-5 MG] 1 - 2 each PO Q6H PRN #12 tab [Rx] Past Medical History Gastrointestinal History: Reports: None Genitourinary History: Reports: None 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: , 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: Neurological History: Reports: Seizure Other Neuro History: 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 Endocrine/Metabolic History: Reports: Obesity/BMI 30+ - Infectious Disease History Infectious Disease History: Reports: Chicken Pox - Past Surgical History GI Surgical History: Reports: Appendectomy Female Surgical History: Reports: Section Other Female Surgeries/Procedures: CS x 4 Neurological Surgical History: Reports: Other (See Below) Other Neurological Surgeries/Procedures: pituitary tumor removed ( transsphenoidal) Social & Family History - Family History Family Medical History: Noncontributory Endocrine/Metabolic: Reports: Diabetes, type II Oncologic: Reports: Ovarian - Tobacco Use Smoking Status *Q: Never Smoker - Caffeine Use Caffeine Use: Reports: Coffee, Energy Drinks, Soda, Tea - Recreational Drug Use Recreational Drug Use: No Other Recreational Drug Type: Patient denies recreational drug use. - Living Situation & Occupation Living situation: Reports: Occupation: Employed ED ROS GENERAL - Review of Systems Review Of Systems: ROS reveals no pertinent complaints other than HPI. ED EXAM, GI/ABD - Physical Exam Exam: See Below Exam Limited By: No Limitations General Appearance: Alert, WD/WN, No Apparent Distress, Other (Patient actually appears much more comfortable than her previous ED visit.) Eyes: Bilateral: Normal Appearance Ears: Normal External Exam Nose: Normal Inspection Throat/Mouth: No Airway Compromise Head: Atraumatic, Normocephalic Neck: Full Range of Motion Respiratory/Chest: No Respiratory Distress, Lungs Clear, Normal Breath Sounds Cardiovascular: Regular Rate, Rhythm, No Murmur GI/Abdominal Exam: Normal Bowel Sounds, Soft, No Distention, Tender (RLQ). No: Guarding, Rebound Back Exam: Full Range of Motion, CVA Tenderness (R) (mild), CVA Tenderness (L) ( mild) Extremities: Normal Inspection Neurological: Alert, Normal Cognition, No Motor/Sensory Deficits Psychiatric: Normal Affect, Normal Mood Skin Exam: Warm, Dry, Intact, Normal Color, No Rash Course - Vital Signs Last Recorded V/S: Last Vital Signs Temp 36.8 C 11/06/18 22:40 Pulse 85 11/06/18 22:40 Resp 16 11/06/18 22:40 BP 147/93 H 11/06/18 22:40 Pulse Ox 95 11/06/18 22:40 - Re-Assessments/Exams Free Text/Narrative Re-Assessment/Exam: 11/06/18 23:21 Vital signs are stable. She is in no distress. There is no further work up that can be done in an ED setting. Patient is urged to follow up with a general surgeon as soon as possible. Percocet 5/325 #8 tablets was dispensed in the ED, she is instructed to take 1-2 tablets every 6 hours as needed. Departure - Departure Time of Disposition: 23:07 Disposition: Home, Self-Care 01 Condition: Good Clinical Impression: Abdominal pain of unknown etiology - Discharge Information *PRESCRIPTION DRUG MONITORING PROGRAM REVIEWED*: Yes *COPY OF PRESCRIPTION DRUG MONITORING REPORT IN PATIENT BAUTISTA: No Instructions: Abdominal Pain, Adult, [id number] Referrals: PCP,None [Primary Care Provider] - Forms: ED Department Discharge Additional Instructions: Take Percocet as directed. Follow up with your primary physician in 1-2 days. Return to the ER if symptoms worsen.
== END 2018-11-06 23:10 | disposition home or self-care (01) ==
LOC: FB.ED 22:38
DX: R10.31 Right lower quadrant pain (principal); Z88.6 Allergy status to analgesic agent; Z88.8 Allergy status to other drugs, medicaments and biological substances
CPT/HCPCS: 99283; A9270-GY